=== PATIENT | male | born 1965 | race Caucasian/White ===

== ENCOUNTER 2018-12-01 06:57 | Day surgery (SDC) | payer MEDICAID ==
[~2018-12-01] VITALS: Ht 165.1 cm; Wt 77.3 kg
[~2018-12-01 06:57] MED LIST: ACYC200C PO; CeFAZolin 2 GM/DEXTROSE 50 ML IV ONE; ELVI1TAB3 PO; RINGERS SOLUTION,LACTATED 1,000 ML IV ONE
[2018-12-01] MEDS ORDERED: FentaNYL CITRATE-PF 100 MCG/2 ML VIAL IVP ONE (06:58)
[2018-12-01] MEDS ORDERED: GLYCOPYRROLATE 0.2 MG/ML VIAL IM ONE (06:58)
[2018-12-01] MEDS ORDERED: KETOROLAC TROMETHAMINE 60 MG/2 ML VIAL IM ONE (06:58)
[2018-12-01] MEDS ORDERED: KETAMINE HCL 50 MG/ML 10 ML VIAL IVP ONE (06:58)
[2018-12-01] MEDS ORDERED: ONDANSETRON HCL 4 MG/2 ML VIAL IVP ONE (06:58)
[2018-12-01] MEDS ORDERED: LIDOCAINE/PF 2% 5 ML SYRINGE IVP ONE (06:58)
[2018-12-01] MEDS ORDERED: NEOSTIGMINE METHYLSULFATE 1 MG/ML 10 ML VIAL IVP ONE (06:58)
[2018-12-01] MEDS ORDERED: ROCURONIUM BROMIDE 10 MG/ML 5 ML VIAL IVP ONE (06:58)
[2018-12-01] MEDS ORDERED: MIDAZOLAM HCL 2 MG/2 ML VIAL IVP ONE (06:58)
[2018-12-01] MEDS ORDERED: DEXAMETHASONE SOD PHOS 4 MG/ML VIAL IVP ONE (06:58)
[2018-12-01] MEDS ORDERED: CeFAZolin 2 GM/DEXTROSE 50 ML IV ONE (07:30)
[2018-12-01] MEDS ORDERED: RINGERS SOLUTION,LACTATED 1,000 ML IV ONE (07:30)
[2018-12-01] MEDS ORDERED: LIDOCAINE 2%/EPI 1:200,000/PF 20 ML VIAL ONE (07:46)
[2018-12-01] MEDS ORDERED: SODIUM CHLORIDE 0.9% 0 ML IV ONE (07:46)
[2018-12-01] MEDS ORDERED: BUPIVACAINE HCL/PF 0.5% 30 ML VIAL ONE (07:46)
[2018-12-01] MEDS ORDERED: MEPERIDINE-PF 25 MG/ML VIAL IVP PRN (10:00)
[2018-12-01] MEDS ORDERED: FentaNYL CITRATE-PF 100 MCG/2 ML VIAL IVP PRN (10:00)
[2018-12-01] MEDS ORDERED: HYDROmorphone 2 MG/ML SYRINGE IVP PRN (10:00)
[2018-12-01] MEDS ORDERED: IBUPROFEN 800 MG TABLET PO PRN (11:00)
[2018-12-01] MEDS ORDERED: ACETAMINOPHEN 500 MG TABLET PO PRN (11:00)
== END 2018-12-01 13:30 | disposition home or self-care (01) ==
LOC: SURGERY 06:57
PROVIDERS: ATTEND Surgery
DX: K40.90 Unilateral inguinal hernia, without obstruction or gangrene, not specified as recurrent (principal); D17.6 Benign lipomatous neoplasm of spermatic cord; Z79.899 Other long term (current) drug therapy; Z21 Asymptomatic human immunodeficiency virus [HIV] infection status
CPT/HCPCS: 49650; 93005; C1781; J0690; J1100; J1885; J2250; J2405; J3010; J3490 ×5; J7120; J7030